=== PATIENT | female | born 1950 | race Caucasian/White ===

== ENCOUNTER → 2016-12-23 | Outpatient (CLI) | payer BC ==
--- NOTE | 2016-12-23 13:58 | DI ---
CT ABDOMEN SCAN WITHOUT IV CONTRAST, 12/23/2016 9:50 AM : Clinical History: Abdominal mass. Previous Exam: None at this facility. Scans are performed from the lower lung bases through the liver and kidneys without IV contrast. The lung bases are clear. The liver, spleen, pancreas, and adrenal glands are normal. The gallbladder is grossly normal. Both kidneys are normal in size, shape, position and contour. There is no hydrone phrosis or hydroureter. No renal or ureteral calculi are present. There are no abnormal retrocrural o r periaortic nodes. There is no ascites. There is a midline defect approximately 7 cm superior to the umbilicus through which mesenteric fat has herniated. This may represent the clinically palpable mas s. There is also a small umbilical hernia through which only mesenteric fat has herniated. READIN. CT scans of the upper abdomen with respect to the abdominal contents is normal. 2. There is a roughly 20 x 30 mm midline defect superior to the umbilicus representing a hernia thro ugh which only mesenteric fat has herniated. 3. There is a small umbilical hernia through which only mesenteric fat has herniated.
== END ==
LOC: CT 09:48
PROVIDERS: ATTEND Internal Medicine
DX: R19.09 Other intra-abdominal and pelvic swelling, mass and lump (principal)
CPT/HCPCS: 74150

== ENCOUNTER → 2017-01-01 | Outpatient (CLI) | payer BC ==
[2017-01-01 12:13] LABS: BILIRUBIN,URINE NEGATIVE (NEG); CLARITY,URINE CLEAR (CLEAR); COLOR,URINE YELLOW; GLUCOSE, URINE (UA) 500 mg/dL (NEG); NITRATE,URINE NEGATIVE (NEG); OCCULT BLOOD,URINE NEGATIVE (NEG); PROTEIN,URINE NEGATIVE (NEG); UROBILINOGEN,URINE 0.2 mg/dL (0.2)
[2017-01-01 12:14] LABS: BACTERIA,URINE RARE; SQUAMOUS EPITHELIAL CELL,UR RARE; URINE SAMPLE TYPE CLEAN CATCH URINE
[2017-01-01 12:25] LABS: CREATININE, URINE 80.4 MG/DL (15-500)
== END ==
LOC: LAB 06:59
PROVIDERS: ATTEND Internal Medicine
DX: E11.9 Type 2 diabetes mellitus without complications (principal)
CPT/HCPCS: 81001; 82043